=== PATIENT | male | born 1975 | race Caucasian/White ===

== ENCOUNTER → 2019-04-11 16:17 | Outpatient (CLI) | payer OTHER, SELFPAY ==
[2019-04-11 17:31] LABS: Hemoglobin 11.6 g/dL (13.0-16.5); Mean Corp Hgb Conc 29.7 g/dL (32-36); Mean Corpuscular Hgb 27.8 pg (27.0-32.0); Mean Corpuscular Volume 93.3 fL (80-94); Mean Platelet Vol. 10.2 fl (6.2-12.0); Platelet Count 238 K/mm3 (150-450); RBC Distribution Width CV 18.1 % (11.6-14.6); RBC Distribution Width SD 60.8 fl (35.1-43.9); Red Blood Count 4.18 M/mm3 (4.6-6.2)
[2019-04-11 17:46] LABS: ALB/GLOB Ratio 0.8 RATIO (0.9-2.4); AST(SGOT) 14 U/L (15-37); Alanine Aminotransfer ALT/SGPT 21 U/L (16-61); Albumin, Serum 3.5 g/dL (3.2-5.0); Alkaline Phosphatase 101 U/L (45-117); Anion Gap 2 (5-15); BUN 15 mg/dL (7-18); CRP 5.29 mg/L (0.0-3.0); Calcium,Total 8.9 mg/dL (8.5-10.1); Chloride 104 mmol/L (98-107); Creatinine, Serum 0.94 mg/dL (0.70-1.30); EST Glomerular Filtration Rate 94 mL/min (>60); Est Glom Filt Rate - Afr Amer 114 mL/min (>60); Globulin 4.5 g/dL (2.2-4.2); Glucose 82 mg/dL (74-106); Potassium 4.1 mmol/L (3.5-5.1); Sodium Level 139 mmol/L (136-145)
[2019-04-11 17:55] LABS: Erythrocyte Sedimentation Rate 10 mm/hr (0-15)
== END ==
PROVIDERS: Referring Provider Internal Medicine Gastroenterology; Visit Provider Internal Medicine Gastroenterology
DX: K52.9 Noninfective gastroenteritis and colitis, unspecified (principal); K50.90 Crohn's disease, unspecified, without complications
CPT/HCPCS: 36415; 80053; 85027; 85652; 86140

== ENCOUNTER → 2020-12-01 16:03 | Outpatient (CLI) | payer MEDICAID, SELFPAY ==
[2020-12-01 17:48] LABS: Erythrocyte Sedimentation Rate 21 mm/hr (0-20)
[2020-12-09 15:30] LABS: Calprotectin, Stool 567 ug/g (0-120)
== END ==
PROVIDERS: PCP Family Medicine; Referring Provider Internal Medicine Gastroenterology; Visit Provider Internal Medicine Gastroenterology
DX: K50.10 Crohn's disease of large intestine without complications (principal)
CPT/HCPCS: 36415; 83993; 85652; 86140

== ENCOUNTER 2020-12-23 10:43 | Day surgery (SDC) | payer OTHER, MEDICAID, SELFPAY ==
[2020-12-23] VITALS (7 sets, daily range): BP systolic 97–122; BP diastolic 60–83; PULSE 16–65; RESP 14–16; TEMP 36.1–37.1; O2SAT 98–100; BMI 24.7
[2020-12-23] MEDS: Lactated Ringers 1,000 ML 100 ML IV (11:30)
[2020-12-23 11:50] LABS: Bedside Glucose 90 mg/dL (70-110)
--- NOTE | 2020-12-23 12:00 | COLBX_PTH ---
PATIENT: THOMAS SAINZ LOC: EN U#:[id number] AGE/SX: 45/M ROOM: RE12/23/[address]: Dr. Kyaw Xiao DO : 1975 BED: DIS: 12/23/2020 SPEC #: [id number] RECD: 12/23/20 17:04 STATUS: SALIMA MNIESH #: [id number] CELENA: 12/23/20 12:[address]: Kyaw Xiao DEPT: SURGICAL PATHOLOGY RECD BY: Lashon Liang ENTERED: 12/24/20 09:04 SP TYPE: COLON BX OTHR DR: Dr. Cesar Fletcher MD Tissues: A - Ileum, NOS B - Cecum, NOS C - Ascending colon D - Transverse colon E - Descending colon F - Sigmoid colon biopsy G - Rectum, NOS H - Rectum, NOS Procedures: Surgery Specimen Level IV HEADER OPERATION: Colonoscopy (MAC) PRE-OP DIAGNOSIS: Inflammatory bowel disease TISSUE SUBMITTED: A ? Terminal ileum biopsy, B ? Cecum biopsy, C ? Ascending colon biopsy, D ? Transverse colon biopsy, E ? Descending colon biopsy, F ? Sigmoid colon biopsy, G ? Rectal biopsy, H ? Rectal polyp biopsy MICROSCOPIC DIAGNOSIS A. Terminal ileum, biopsy: No pathologic change. B. Cecum, biopsy: No pathologic change. C. Ascending colon, biopsy: No pathologic change. D. Transverse colon, biopsy: Mild architectural change. No evidence of active colitis. E. Descending colon, biopsy: Mild architectural change. No evidence of active colitis. F. Sigmoid colon, biopsy: Mild architectural change. No evidence of active colitis. G. Rectum, biopsy: Mild architectural change. No evidence of active colitis. H. Rectal polyp, biopsy: Ulceration with acute and chronic inflammation and granulation. AM:catalino 12/25/2020 MICROSCOPIC DESCRIPTION Slides are reviewed. GROSS DESCRIPTION A - Received in fixative is one container labeled with the patient's name and designated terminal ileum biopsy. The specimen consists of multiple irregular fragments of light carnes soft tissue that in aggregate measure 0.5 x 0.5 x 0.1 cm. The specimen is totally submitted in one cassette. B - Received in fixative is one container labeled with the patient's name and designated cecum biopsy. The specimen consists of multiple irregular fragments of light carnes soft tissue that in aggregate measure 0.5 x 0.4 x 0.1 cm. The specimen is totally submitted in one cassette. C - Received in fixative is one container labeled with the patient's name and designated ascending colon biopsy. The specimen consists of multiple irregular fragments of light carnes soft tissue that in aggregate measure 0.5 x 0.4 x 0.1 cm. The specimen is totally submitted in one cassette. D - Received in fixative is one container labeled with the patient's name and designated transverse colon biopsy. The specimen consists of two irregular fragments of light carnes soft tissue that in aggregate measure 0.4 x 0.2 x 0.1 cm. The specimen is totally submitted in one cassette. E - Received in fixative is one container labeled with the patient's name and designated descending colon biopsy. The specimen consists of multiple irregular fragments of light carnes soft tissue that in aggregate measure 0.6 x 0.2 x 0.1 cm. The specimen is totally submitted in one cassette. F - Received in fixative is one container labeled with the patient's name and designated sigmoid colon biopsy. The specimen consists of multiple irregular fragments of light carnes soft tissue that in aggregate measure 0.5 x 0.5 x 0.1 cm. The specimen is totally submitted in one cassette. G - Received in fixative is one container labeled with the patient's name and designated rectum biopsy. The specimen consists of multiple irregular fragments of light carnes soft tissue that in aggregate measure 0.8 x 0.3 x 0.1 cm. The specimen is totally submitted in one cassette. H - Received in fixative is one container labeled with the patient's name and designated rectal polyp biopsy. The specimen consists of two irregular fragments of light carnes soft tissue that in aggregate measure 0.4 x 0.2 x 0.1 cm. The specimen is totally submitted in one cassette. / SJ:rg 12/24/20 TC:2 [facility]: [id number] x8
--- NOTE | 2020-12-23 13:11 | HP.PCM_ITS ---
History and Physical Date of Admission: 12/23/20 HPI HPI Details: THOMAS SAINZ, is a 45 M who presents to the office today for past medical history of inflammatory bowel disease. Patient says that initially he was diagnosed with ulcerative colitis and was placed on balsalazide therapy. That was switched to Humira after the balsalazide did not work. He went to see a different sorter operator they gave him his initial diagnosis of ulcerative colitis and he told him that he had Crohn's disease. That sorter operator retired and he was not able to get his medicine for his inflammatory bowel disease so he went back to the balsalazide. The balsalazide did not work at all. He was able to get in contact with his sorter operator and he was able to refill his Humira. Currently he does not think that his Advair is working. As he is still having a lot of mucus, blood and tenesmus. He is also having urgency and a lot of frequent bowel movements. He is having to wake up in the middle night and he is having to miss work because he cannot stop for going to the bathroom. He denies any recent antibiotics. He denies recent travel. His last Humira injection was on11/26/20. As a history of alcohol abuse with recent completion of rehabilitation - history of DUI with court ordered rehab. Last drink was in June 2020. His last colonoscopy was in 2016. ROS Const Constitutional: No anorexia, fatigue, fever(s), weight change or sleep problems Eyes Eyes: No change in vision ENT ENT: No abnormal hearing, difficulty swallowing, mouth lesions, tongue swelling or throat swelling Resp Respiratory: No cough or shortness of breath Cardio Cardiology: No chest pain at rest, chest pain with exertion, shortness of breath or dyspnea on exertion Gastro GI: Positive for abdominal pain, bloating, diarrhea and Blood in stool; No difficulty swallowing Genitourinary Male: No difficulty urinating or burning urination Musc Musculoskeletal: No joint pain, joint swelling, muscle weakness or decreased muscle mass Skin Skin: No hair loss in leg, yellowing of the eye, itchy eyes, rash, skin ulcer or skin swelling Neuro Neurology: No abnormal hearing, abnormal movements, confusion, unsteady gait/balance or memory loss Psych Psychiatric: No anxiety, No confusion and No memory loss Endo Endocrine: No fatigue or weight change Aller/Imm Allergy/Immunologic: No itchy eyes, throat swelling or tongue swelling Thoams/Lymp Hematologic/Lymphatic: No easy bleeding, easy bruising or enlarged lymph nodes Exam Const General: cooperative and comfortable Nutritional Appearance: average body habitus and well nourished [facility] Head: normal to inspection Ears: hearing grossly normal bilaterally Nose: external nose normal Face and sinus: normal facial exam Mouth: oral mucosae normal Throat: posterior oropharynx normal Eyes General: appearance normal, both eyes and all related structures Neck Neck: normal visual inspection Chest Chest palpation & inspection: normal inspection of the chest and normal palpation of entire chest wall Resp Effort & Inspection: normal respiratory effort Auscultation: Bilateral: Clear to Auscultation Cardio Palpation: normal PMI Rate: regular rate Rhythm: regular rhythm GI Inspection: normal to inspection Auscultation: normal bowel sounds Percussion: normal to percussion Palpation: no hepatosplenomegaly Skin General: no rashes or lesions noted Neuro General: patient alert Extrem General: normal to inspection Psych Affect: normal affect Assessment and Plan Assessment and Plan (1) Inflammatory bowel disease: Status: Acute Plan - Dr. Card Friend, DO: Patient will undergo colonoscopy. He will also have stool studies check for C. difficile, enteric pathogens, Giardia. We also check ESR, CRP and stool lactoferrin. We will check his antibodies for adalimumab. We discussed him going on immunomodulator such as Imuran or azathioprine in addition to Humira if he does not have any antibodies. He was taking Humira weekly and he still was not having any improvement in symptoms. We will also need to check therapeutic levels. This initial visit took approximately 30 minutes. Plan Details Other Medications: New: prednisone 40 mg (2 x 20 mg) PO DAILY 180 tabs 0RF
--- NOTE | 2020-12-23 13:49 | OP.COLON_ITS ---
Patient Name: Owen Hassan Procedure Date: 12/23/2020 1:08 PM Date of : 1975 Age: 45 Procedure: Colonoscopy Indications: Crohn's disease of the small bowel and colon Providers: Kyaw Xiao DO Medicines: See the Anesthesia note for documentation of the administered medications Patient Profile: This is a 45 year old male. Refer to note in patient chart for documentation of history and physical. Last Colonoscopy: 3 years ago. Complications: No immediate complications. Procedure: Pre-Anesthesia Assessment: - Prior to the procedure, a History and Physical was performed, and patient medications and allergies were reviewed. The patient is competent. The risks and benefits of the procedure and the sedation options and risks were discussed with the patient. All questions were answered and informed consent was obtained. Patient identification and proposed procedure were verified by the physician. Mental Status Examination: alert and oriented. Airway Examination: normal oropharyngeal airway and neck mobility. Respiratory Examination: clear to auscultation. CV Examination: normal. Prophylactic Antibiotics: The patient does not require prophylactic antibiotics. Prior Anticoagulants: The patient has taken no previous anticoagulant or antiplatelet agents. ASA Grade Assessment: II - A patient with mild systemic disease. After reviewing the risks and benefits, the patient was deemed in satisfactory condition to undergo the procedure. The anesthesia plan was to use moderate sedation / analgesia (conscious sedation). Immediately prior to administration of medications, the patient was re-assessed for adequacy to receive sedatives. The heart rate, respiratory rate, oxygen saturations, blood pressure, adequacy of pulmonary ventilation, and response to care were monitored throughout the procedure. The physical status of the patient was re-assessed after the procedure. After I obtained informed consent, the scope was passed under direct vision. Throughout the procedure, the patient's blood pressure, pulse, and oxygen saturations were monitored continuously. The Colonoscope was introduced through the anus and advanced to 10 cm into the ileum. The colonoscopy was performed without difficulty. The patient tolerated the procedure well. The quality of the bowel preparation was good. Moderate Sedation: Moderate (conscious) sedation was administered by the endoscopy nurse and supervised by the endoscopist. The patient's oxygen saturation, heart rate, blood pressure and response to care were monitored. Total physician intraservice time was 15 minutes. Scope In: 1:20:06 PM Scope Withdrawal Time 0 hours 13 minutes 44 seconds Scope Out: 1:39:55 PM Total Procedure Duration Time 0 hours 19 minutes 49 seconds Findings: The perianal and digital rectal examinations were normal. The Simple Endoscopic Score for Crohn's Disease was determined based on the endoscopic appearance of the mucosa in the following segments: - Ileum: Findings include ulcers greater than 2 cm in size, greater than 30% ulcerated surfaces, greater than 75% of surfaces affected and multiple narrowings that can be passed. Segment score: 11. - Right Colon: Findings include ulcers greater than 2 cm in size, greater than 30% ulcerated surfaces, 50-75% of surfaces affected and no narrowings. Segment score: 8. - Transverse Colon: Findings include large ulcers 0.5-2 cm in size, 10-30% ulcerated surfaces, 50-75% of surfaces affected and multiple narrowings that can be passed. Segment score: 8. - Left Colon: Findings include ulcers greater than 2 cm in size, greater than 30% ulcerated surfaces, greater than 75% of surfaces affected and a single narrowing that can be passed. Segment score: 10. - Rectum: Findings include ulcers greater than 2 cm in size, 10-30% ulcerated surfaces, greater than 75% of surfaces affected and no narrowings. Segment score: 8. - Total SES-CD aggregate score: 45. Biopsies were taken with a cold forceps for histology. Verification of patient identification for the specimen was done. Estimated blood loss was minimal. Segmental inflammation, graded as Rutgeerts Score i1 (five or fewer aphthous lesions) was found in the distal ileum. Biopsies were taken with a cold forceps for histology. Verification of patient identification for the specimen was done. Estimated blood loss was minimal. Impression: - Simple Endoscopic Score for Crohn's Disease: 45, mucosal inflammatory changes secondary to Crohn's disease, with ileitis and colitis. Biopsied. - Inflammatory bowel disease. Biopsied. Recommendation: - Discharge patient to home. - Resume previous diet. - Continue present medications. - Await pathology results. - Return to my office in 2 weeks. - Repeat colonoscopy in 1 year for surveillance based on pathology results. Procedure Code(s): --- Professional --- 21590, Colonoscopy, flexible; with biopsy, single or multiple G0500, Moderate sedation services provided by the same physician or other qualified health care process manager performing a gastrointestinal endoscopic service that sedation supports, requiring the presence of an independent trained observer to assist in the monitoring of the patient's level of consciousness and physiological status; initial 15 minutes of intra-service time; patient age 5 years or older (additional time may be reported with 09874, as appropriate) Diagnosis Code(s): --- Professional --- K50.80, Crohn's disease of both small and large intestine without complications K52.3, Indeterminate colitis CPT copyright 2017 [employer]. All rights reserved. The codes documented in this report are preliminary and upon software qa manager review may be revised to meet current compliance requirements. Kyaw Xiao DO 12/23/2020 1:48:52 PM This report has been signed electronically. Number of Addenda: 1 Note Initiated On: 12/23/2020 1:08 PM Addendum Number: 1 Addendum Date: 10/16/2021 6:19:28 AM MAC was used instead of moderate sedation for this patient. Kyaw Xiao DO 10/16/2021 6:19:33 AM This report has been signed electronically.
--- NOTE | 2020-12-23 13:49 | OP.CCLET_ITS ---
10/16/2021 Cesar Fletcher Re : Colonoscopy procedure for Owen Fletcher This procedure was performed on Wednesday, December 23, 2020. My impressions and recommendations are as follows: Impressions : - Simple Endoscopic Score for Crohn's Disease: 45, mucosal inflammatory changes secondary to Crohn's disease, with ileitis and colitis. Biopsied. - Inflammatory bowel disease. Biopsied. Recommendations : - Discharge patient to home. - Resume previous diet. - Continue present medications. - Await pathology results. - Return to my office in 2 weeks. - Repeat colonoscopy in 1 year for surveillance based on pathology results. My findings are described in the full procedure note, which is enclosed. If I can be of further assistance, please feel free to contact me at . Sincerely, Kyaw Friend, 12/23/2020 1:48:52 PM This report has been signed electronically.
== END 2020-12-23 14:45 | disposition home or self-care (01) ==
LOC: EN 10:48 → AC 10:53
PROVIDERS: PCP Family Medicine; Referring Provider Internal Medicine Gastroenterology; Visit Provider Internal Medicine Gastroenterology
PROC: 0DJD8ZZ Inspection of Lower Intestinal Tract, Via Natural or Artificial Opening Endoscopic (ICD-10-PCS; CPT 45378; principal; 2020-12-23 11:55)
DX: K62.6 Ulcer of anus and rectum (principal); K50.80 Crohn's disease of both small and large intestine without complications; E11.9 Type 2 diabetes mellitus without complications; E03.9 Hypothyroidism, unspecified; F17.200 Nicotine dependence, unspecified, uncomplicated; Z79.84 Long term (current) use of oral hypoglycemic drugs; Z79.899 Other long term (current) drug therapy
CPT/HCPCS: 45380; 82962; 87426; 88305; J7120; J2405

== ENCOUNTER → 2021-01-09 14:53 | Outpatient (CLI) | payer OTHER, MEDICAID, SELFPAY ==
[2021-01-15 00:06] LABS: Hepatitis A IgM Antibody Negative (Negative); Hepatitis B Core Ab Total Negative (Negative)
[2021-01-15 13:40] LABS: B. pertussis IgG 1.38 index (0.00-0.94); Hepatitis B Core AB IgM Negative (Negative); Mumps Antibody, IgM < 0.80 AU (0.00-0.79); V-Zoster IgG (Immunity) > 4000 index (Immune >165)
== END ==
PROVIDERS: PCP Family Medicine; Referring Provider Internal Medicine Gastroenterology; Visit Provider Internal Medicine Gastroenterology
DX: K50.10 Crohn's disease of large intestine without complications (principal)
CPT/HCPCS: 36415; 86704; 86705; 86709; 86735; 86762; 86787

== ENCOUNTER → 2021-02-02 15:54 | Outpatient (CLI) | payer OTHER, MEDICAID, SELFPAY ==
[2021-02-02 16:48] LABS: Erythrocyte Sedimentation Rate 13 mm/hr (0-20)
[2021-02-02 17:04] LABS: ALB/GLOB Ratio 0.8 RATIO (0.9-2.4); AST(SGOT) 32 U/L (15-37); Alanine Aminotransfer ALT/SGPT 32 U/L (16-61); Albumin, Serum 3.3 g/dL (3.2-5.0); Alkaline Phosphatase 75 U/L (45-117); Anion Gap 9 (5-15); BUN 12 mg/dL (7-18); Calcium,Total 9.2 mg/dL (8.5-10.1); Chloride 90 mmol/L (98-107); Creatinine, Serum 1.09 mg/dL (0.70-1.30); EST Glomerular Filtration Rate 78 mL/min (>60); Est Glom Filt Rate - Afr Amer 95 mL/min (>60); Globulin 4.2 g/dL (2.2-4.2); Glucose 99 mg/dL (74-106); Potassium 3.9 mmol/L (3.5-5.1); Protein, Total 7.5 g/dL (6.4-8.2); Sodium Level 130 mmol/L (136-145)
== END ==
PROVIDERS: PCP Family Medicine; Referring Provider Internal Medicine Gastroenterology; Visit Provider Internal Medicine Gastroenterology
DX: K50.10 Crohn's disease of large intestine without complications (principal)
CPT/HCPCS: 36415; 80053; 85652; 86140

== ENCOUNTER 2021-05-04 12:48 | Outpatient (CLI) | payer OTHER, MEDICAID, SELFPAY ==
[2021-05-04 13:39] LABS: Absolute Lymphocyte Count 0.14 X10^3/uL (0.83-4.51); Absolute Neutrophil Count 0.9 X10^3/uL (2.0-7.7); Hematocrit 21.3 % (40-54); Hemoglobin 7.9 g/dL (13.0-16.5); Lymphocyte # 0.14 X10^3/ul (0.83-4.51); Lymphocyte % 12.7 % (19-41); Mean Corp Hgb Conc 37.1 g/dL (32-36); Mean Corpuscular Hgb 33.2 pg (27.0-32.0); Mean Corpuscular Volume 89.5 fL (80-94); Monocyte# 0.05 X10^3/uL; Monocyte% 4.5 % (0-10); NRBC Flagged by Analyzer 0 % (0-5); Neutrophil # 0.89 X10^3/uL (2.7-7.7); POSITIVE COUNT YES; POSITIVE DIFFERENTIAL YES; POSITIVE MORPHOLOGY YES; Platelet Count 17 K/mm3 (150-450); RBC Distribution Width CV 15.8 % (11.6-14.6); RBC Distribution Width SD 51.6 fl (35.1-43.9); Red Blood Count 2.38 M/mm3 (4.6-6.2); White Blood Count 1.1 K/mm3 (4.4-11.0)
[2021-05-04 13:42] LABS: Erythrocyte Sedimentation Rate 8 mm/hr (0-20)
[2021-05-04 14:19] LABS: Differential Indicated SCAN CRITERIA MET; Hypochromasia 1+; Platelet Estimate MKD DEC (ADEQ)
[2021-05-04 14:20] LABS: Tear Drop Cell RARE
[2021-05-04 14:21] LABS: ALB/GLOB Ratio 0.5 RATIO (0.9-2.4); AST(SGOT) 71 U/L (15-37); Alanine Aminotransfer ALT/SGPT 39 U/L (16-61); Alkaline Phosphatase 62 U/L (45-117); Anion Gap 9 (5-15); BUN 23 mg/dL (7-18); BUN/Creat Ratio 20.4 RATIO (10-20); Calcium,Total 7.4 mg/dL (8.5-10.1); Chloride 91 mmol/L (98-107); Creatinine, Serum 1.13 mg/dL (0.70-1.30); EST Glomerular Filtration Rate 75 mL/min (>60); Est Glom Filt Rate - Afr Amer 91 mL/min (>60); Globulin 3.7 g/dL (2.2-4.2); Glucose 172 mg/dL (74-106); Potassium 2.7 mmol/L (3.5-5.1); Protein, Total 5.7 g/dL (6.4-8.2); Sodium Level 121 mmol/L (136-145)
[2021-05-05 13:05] LABS: Pathologist Review Reviewed
== END 2021-05-04 23:59 | disposition home or self-care (01) ==
LOC: LAB 12:54
PROVIDERS: PCP Family Medicine; Visit Provider Internal Medicine Gastroenterology
DX: K50.10 Crohn's disease of large intestine without complications (principal)
CPT/HCPCS: 36415; 80053; 85025; 85652; 86140

== ENCOUNTER 2021-05-04 16:00 | Emergency (ER) | payer OTHER, MEDICAID, SELFPAY ==
[2021-05-04] VITALS (12 sets, daily range): BP systolic 72–108; BP diastolic 41–65; PULSE 81–104; RESP 15–25; TEMP 36.5–38.2; O2SAT 75–98; BMI 22.6
--- NOTE | 2021-05-04 17:14 | EKG12_ITS ---
Test Reason : ABNORMAL LABS Blood Pressure : / mmHG Vent. Rate : 092 BPM Atrial Rate : 092 BPM P-R Int : 196 ms QRS Dur : 100 ms QT Int : 370 ms P-R-T Axes : 072 042 052 degrees QTc Int : 457 ms Sinus rhythm with occasional Premature ventricular complexes Low voltage QRS Borderline ECG Confirmed by BARBARA KRUSE, LEANNE ([id number]), legal editor LUIS EDUARDO MON ([id number]) on 05/07/2021 9:28:34 AM Referred By: YASH Confirmed By:LEANNE JIMENEZ MD
--- NOTE | 2021-05-04 17:30 | RAD_ITS ---
EXAM: XR CHEST, 1 VIEW CLINICAL INDICATION: weakness TECHNIQUE: Frontal view of the chest. This report was created using [employer] report generation technology. COMPARISON: None. FINDINGS: LUNGS AND PLEURAL SPACES: Unremarkable. No consolidation or edema. No pneumothorax. No effusion. HEART: Unremarkable. Cardiac silhouette not enlarged. MEDIASTINUM: Central airways and mediastinal contour are unremarkable. BONES/JOINTS: Unremarkable. SOFT TISSUES: Unremarkable. RAD/Chest 1 View (Portable) IMPRESSION: No radiographic evidence of acute cardiopulmonary disease. Electronically Signed: Ajith Parra MD at 17:47 EDT ,
--- NOTE | 2021-05-04 18:05 | EX.PCM.CON.G ---
HPI Consult Data Date of Consult: 05/04/21 HPI Narrative HPI Narrative: THOMAS SAINZ, is a 46 M who presents after calling the office today with chief complaint of weakness and fatigue. He has a long history of inflammatory bowel disease, specifically Crohn's disease. He had been on Humira and prednisone in the past. We got to know him in November 2020. His work-up included an IBD SGI which was inconclusive for Crohn's disease versus ulcerative colitis. He did not know if he had ulcerative colitis or Crohn's disease. His stool studies did not show any signs of infectious colitis. His initial ESR was 21 and CRP was 31.9. He had a colonoscopy performed on 12/23/2020. Colonoscopy ? Mucosal inflammatory changes secondary to Crohn?s disease with ileitis and colitis. IBD. Biopsy ? rectal polyp, ulceration with acute and chronic inflammation and granulation. He was started on azathioprine and prednisone two weeks prior to the colonoscopy. He felt that urgency may be less following prednisone course. He had continued to be taking prednisone 40mg QD and Lomotil was started to control his diarrhea. As he was still having seepage of mucous on occasion, uses witch mery wipes to help with skin irritation. When he feels the need to go there is still some diarrhea and a lot of gas which is an improvement. Humira taken previously which helped and placed him in remission but feels it stopped helping. Last taken several months ago. On his last visit in January 2021 we had decided to continue azathioprine 150mg as it is helping as we were getting insurance approval for Remicade. His LFT's, amylase, lipase and WBC within expected range. He called the office today because he been having worsening fatigue and weakness along with diarrhea. We had ordered labs and showed pancytopenia with a white count of 1.1, platelet count of 17 and hemoglobin is 7.9. He was also hypokalemic and hyponatremic. He was started on IV fluids and prophylactic antibiotics were ordered. Also stool cultures and blood cultures were ordered along with stool for CMV. [facility] Medical History (Updated 05/04/21 @ 18:[address] Card Friend, ) Alcohol use Chewing tobacco nicotine dependence Crohn's colitis Decreased libido Depression Diabetes Diabetes mellitus History of Crohn's disease History of pain when walking History of steroid therapy Hypothyroid Leukocytosis Seizures Ulcerative colitis Home Medications calcium carbonate 600 mg calcium (1,500 mg) tablet 600 mg PO DAILY 12/01/20 [History Last Taken Unknown] citalopram 40 mg tablet 20 mg PO DAILY 12/01/20 [History Last Taken Unknown] levothyroxine 75 mcg tablet 75 mcg PO DAILY 12/01/20 [History Last Taken Unknown] mecobalamin (vitamin B12) 1,000 mcg chewable tablet 1,000 mcg PO BID 12/01/20 [History Last Taken Unknown] metformin 500 mg tablet 500 mg PO DAILY 12/01/20 [History Last Taken Unknown] multivitamin 1 tab PO DAILY 12/01/20 [History Last Taken Unknown] omega-3 fatty acids 1,000 mg capsule 1,000 mg PO DAILY 12/01/20 [History Last Taken Unknown] ginkgo biloba 120 mg PO DAILY 12/19/20 [History Last Taken Unknown] azathioprine 50 mg tablet 100 mg PO DAILY 30 Days #60 tab 12/23/20 [Rx Last Taken Unknown] azathioprine 50 mg tablet 150 mg PO DAILY #90 tab 01/05/21 [Rx Last Taken Unknown] diphenoxylate-atropine 2.5 mg-0.025 mg tablet 1 tab PO DAILY #30 tab 01/05/21 [Rx Last Taken Unknown] dicyclomine 10 mg capsule 10 mg PO TID #21 cap 02/02/21 [Rx Last Taken Unknown] prednisone 20 mg tablet 40 mg PO QHS #60 tab 03/25/21 [Rx Last Taken Unknown] Allergy/AdvReac Type Severity Reaction Status Date / Time No Known Allergies Allergy Verified 05/04/21 16:03 Surgical History History of mandibular surgery Hx of colonoscopy Hx of myringotomy Social History Smoking Status: Current every day smoker tobacco type: smokeless tobacco ROS Review of Systems ROS Unobtainable: other Constitutional Constitutional: Denies fatigue, fever(s), poor appetite, weight gain or weight loss ENT HEENT: Denies mouth lesions Cardiovascular Cardiovascular: Denies abdominal bloating, abdominal edema or abdominal pain Respiratory/Chest Respiratory/Chest: Denies change in mental status, change in phlegm color, chest congestion or chest tightness Gastrointestinal Gastrointestinal: Denies belching, bloating, change in bowel habits, change in stool character, chewing difficulty, coffee ground emesis, constipation, cramping, diarrhea, dyspepsia, dysphagia, early satiety, excessive flatus, fecal incontinence, heartburn, hematemesis, hematochezia, hemorrhoids, loose stools, melena, nausea, odynophagia, rectal bleeding, tenesmus, vomiting or weight changes Genitourinary Genitourinary: Denies abdominal discomfort, burning urination or itching Musculoskeletal Musculoskeletal: Reports as per HPI; Denies muscle weakness or myalgias Integumentary Integumentary: Denies jaundice Neurologic Neurologic: Denies lack of coordination or weakness Psychiatric Psychiatric: Denies confusion, depression, memory loss, mood swings, paranoia or suicidal ideation Endocrine Endocrinology: Denies systems reviewed and no addt'l complaints, except as documented Hematologic/Lymphatic Hematologic/Lymphatic: Denies anemia, easy bleeding, easy bruising or lymphadenopathy Allergic/Immunologic Allergic/Immunologic: Denies systems reviewed and no addt'l complaints, except as documented Physical Exam Const alert General Appearance: cooperative Orientation / Consciousness: oriented to person HEENT hearing grossly normal bilaterally Head and Scalp: normal to inspection Face and Sinus: face symmetric Nose: external nose normal Mouth: oral and palatal mucosa normal Eyes conjunctivae normal General Eye: normal appearance of both eyes Neck full ROM General: normal visual inspection Lymph Lymphatic: no lymphadenopathy noted Chest inspection of chest normal and palpation of chest normal Chest: symmetrical chest wall rise Resp normal respiratory effort Effort and Inspection: able to speak in complete sentences Cardio regular rate GI non-distended Percussion: normal to percussion Rectal Exam: deferred Neuro Speech: speech normal Gait (Neuro): normal gait Radiology Impression Chest X-Ray 05/04/21 17:30 IMPRESSION: No radiographic evidence of acute cardiopulmonary disease. Electronically Signed: Ajith Parra MD at 17:47 EDT , Assessment & Plan Assessment/Plan (1) Crohn's colitis: PLAN: Patient seems to be having a lot of diarrhea possibly consistent with a flare of Crohn's colitis. This could be from infectious colitis due to his severe pancytopenia. Recommend to check a cortisol level. He may need prophylactic steroids, for now would just recommend to give him Questran or cholestyramine for his diarrhea. He may also have Lomotil depending on his stool studies. His inflammatory markers evaluate elevated and I cannot tell if that is from Crohn's disease or infectious colitis at this time. Await stool cultures and blood cultures (2) Pancytopenia: PLAN: Thought to be secondary to azathioprine and or Remicade. He did not have this reaction with Humira or prednisone so I am suspecting it is more likely azathioprine than Remicade. Typically we will check therapeutic levels, however we cannot do that as an inpatient. I talked to hematology and if his absolute neutrophil count continues to drop then he can get Neupogen. I would avoid the antibiotics that can induce worsening neutropenia or pancytopenia. Charges/Coding Visit Charges Inpatient E&M: 67392 Init Hosp L3
[2021-05-04] MEDS: 0.9% Normal Saline 1,000 ML 999 ML IV ×3 (18:36→20:32)
[2021-05-04 18:49] LABS: International Normalized Ratio 1.3; Prothrombin Time (Protime)PT. 15.7 SECONDS (11.7-14.9)
--- NOTE | 2021-05-04 18:50 | CT_ITS ---
STUDY: CT Abdomen And Pelvis W/ Contrast Injection 05/04/2021 7:29 PM REASON FOR EXAM: Male, 46 years old. ABDOMINAL PAIN crohns TECHNIQUE: Transaxial images were obtained without oral contrast, and with 100 ML OF ISOVUE 300 intravenous contrast. Individualized dose optimization techniques were used for this CT. COMPARISON: None. FINDINGS: Multiple subcentimeter bilateral lung nodules. There are bilateral pleural effusions. Normal liver. Normal gallbladder and extrahepatic biliary system. There is mild splenomegaly. Normal pancreas. Splenic varices Normal bilateral adrenal glands. No acute findings of the right kidney. No acute findings of the left kidney. Normal visualized stomach. Normal small intestine. Mild wall inflammation of the rectosigmoid colon. This appearance suggests colitis. The appendix is visualized and appears normal. There are calcifications of the abdominal aorta. This is consistent for atherosclerotic disease. There is no abdominal aortic aneurysm. Normal inferior vena cava. Subcentimeter mesenteric lymph nodes. Periaortic lymph nodes Normal urinary bladder. There is an umbilical hernia containing fat. There are diffuse degenerative changes of the visualized lumbar spine. IMPRESSION: (NOT LISTED IN ORDER OF SIGNIFICANCE) Mild wall inflammation of the rectosigmoid colon. This appearance suggests colitis. Multiple subcentimeter bilateral lung nodules. Metastatic disease is not excluded. Recommend CT chest to evaluate for other masses. There are bilateral pleural effusions. Splenic varices. There is mild splenomegaly. Other findings as above. Electronically Signed: Ajith Parra MD at 19:33 EDT , CT/Abdomen/Pelvis W IV Cont ONLY
[2021-05-04 18:51] LABS: Partial Thromboplast Time 50.1 Seconds (24.1-36.2)
[2021-05-04 18:57] LABS: Magnesium 1.7 mg/dL (1.6-2.6); Troponin-I HS 6 pg/mL (3.0-78.0)
[2021-05-04 19:00] LABS: Lactic Acid 1.4 mmol/L (0.4-1.9)
[2021-05-04] MEDS: Piperacil/Tazobactam 3.375 GM Q8 PREMIX IV (19:13)
[2021-05-04 19:50] LABS: CPK Total, Creatine Kinase 75 U/L (39-308); Ferritin 39901 ng/mL (26-388); Iron 29 ug/dL (65-175); Iron Binding Capacity,Total 136 ug/dL (250-450); PERCENT IRON SATURATION 21.3 % (15.0-55.0)
[2021-05-04] MEDS: Magnesium Sulfate 4gm/100mL 4 GM/100 ML IV.SOLN. IV (20:53)
[2021-05-04] MEDS: Albumin Human 25% (50 mL) 12.5 GM/50 ML IV.SOLN IV (21:26)
[2021-05-04] MEDS: Acetaminophen 500 MG Tablet 1000 MG PO (21:38)
--- NOTE | 2021-05-04 21:53 | ED.RN ---
CALLED [facility] AND ASKED THEM FOR A ETA 3 HOURS, I ASKED THEM TO OUTSOURCE THIS FOR US.
--- NOTE | 2021-05-04 22:08 | ED.RN ---
[facility] ETA IS 3 HOURS FOR THIS PATIENT THEY TRIED TO OUTSOURCE NOBODY WOULD TAKE IT
--- NOTE | 2021-05-04 22:21 | EDS_ITS ---
HPI History of Present Illness Chief Complaint: Abn Labs Narrative Narrative: 46-year-old male with history of Crohn's disease who sees Dr. Xiao. Recently had endoscopy performed and it was noted that his Humira was no longer working for him. Patient's been doing Remicade treatments outpatient and he notes that after the last one on the fourth he has been feeling unwell and weak. He describes weakness when walking. He states he can only hold his arm out for about a minute or so. He has been looking for stools to sit on at work because he is too weak to stay standing. Patient states that he called Dr. Xiao's office today and lab work was ordered and he went and had this done. He states that all of his labs were abnormal and he was referred to the ER. Patient has not had any chest pain or shortness of breath although he does have some lightheadedness. He denies any abdominal pain. He states he has a lot of profuse diarrhea which is uncontrollable and he states this more or less just comes out of his rectum without any warning and he has been having to change his pants all day. He denies bloody stools. He denies vomiting, hematemesis, coffee-ground emesis. Patient does not express that he has any abdominal pain or urinary complaints. [facility] Medical History Alcohol use Chewing tobacco nicotine dependence Crohn's colitis Decreased libido Depression Diabetes Diabetes mellitus History of Crohn's disease History of pain when walking History of steroid therapy Hypothyroid Leukocytosis Seizures Ulcerative colitis Home Medications calcium carbonate 600 mg calcium (1,500 mg) tablet 600 mg PO DAILY 12/01/20 [History Last Taken Unknown] citalopram 40 mg tablet 20 mg PO DAILY 12/01/20 [History Last Taken Unknown] levothyroxine 75 mcg tablet 75 mcg PO DAILY 12/01/20 [History Last Taken Unknown] mecobalamin (vitamin B12) 1,000 mcg chewable tablet 1,000 mcg PO BID 12/01/20 [History Last Taken Unknown] metformin 500 mg tablet 500 mg PO DAILY 12/01/20 [History Last Taken Unknown] multivitamin 1 tab PO DAILY 12/01/20 [History Last Taken Unknown] omega-3 fatty acids 1,000 mg capsule 1,000 mg PO DAILY 12/01/20 [History Last Taken Unknown] ginkgo biloba 120 mg PO DAILY 12/19/20 [History Last Taken Unknown] azathioprine 50 mg tablet 100 mg PO DAILY 30 Days #60 tab 12/23/20 [Rx Last Taken Unknown] azathioprine 50 mg tablet 150 mg PO DAILY #90 tab 01/05/21 [Rx Last Taken Unknown] diphenoxylate-atropine 2.5 mg-0.025 mg tablet 1 tab PO DAILY #30 tab 01/05/21 [Rx Last Taken Unknown] dicyclomine 10 mg capsule 10 mg PO TID #21 cap 02/02/21 [Rx Last Taken Unknown] prednisone 20 mg tablet 40 mg PO QHS #60 tab 03/25/21 [Rx Last Taken Unknown] Allergy/AdvReac Type Severity Reaction Status Date / Time No Known Allergies Allergy Verified 05/04/21 16:03 Surgical History History of mandibular surgery Hx of colonoscopy Hx of myringotomy Social History Smoking Status: Former smoker ROS ROS ED Constitutional Constitutional ED: Denies chills or fever(s) Eyes Eyes: Denies blurry vision or diplopia ENT ENT ED: Denies rhinorrhea or sore throat Cardiovascular Cardiovascular: Denies chest pain or palpitations Respiratory/Chest Respiratory/Chest: Denies cough or dyspnea Gastrointestinal Gastrointestinal: Reports diarrhea; Denies abdominal pain, nausea or vomiting Genitourinary Genitourinary ED: Denies dysuria Musculoskeletal Musculoskeletal: Denies myalgias or neck pain Integumentary Denies rash Neurologic Neurologic: Denies headache(s) or paresthesias Psychiatric Psychiatric: Denies anxiety or depression EXAM Physical Exam Const Vital Signs: 05/04/21 16:01 05/04/21 17:01 05/04/21 18:14 Temperature 97.7 F L Temperature Source Temporal Pulse Rate 104 H 96 Respiratory Rate 16 25 H Respiratory Effort Normal Respiratory Pattern Normal Blood Pressure 99/59 L 86/55 L Blood Pressure Mean 72 65 Pulse Ox 98 93 Oxygen Delivery Method Room Air Room Air Oxygen Flow Rate (L/min) 05/04/21 19:14 05/04/21 19:42 05/04/21 19:48 Temperature 100.1 F H Temperature Source Oral Pulse Rate 92 Respiratory Rate 18 16 15 Respiratory Effort Respiratory Pattern Blood Pressure 87/58 L 81/53 L Blood Pressure Mean 67 62 Pulse Ox 93 75 98 Oxygen Delivery Method Room Air Room Air Nasal Cannula Oxygen Flow Rate (L/min) 3 05/04/21 20:14 05/04/21 20:56 05/04/21 21:14 Temperature 100.1 F H 100.7 F H Temperature Source Oral Oral Pulse Rate 90 90 96 Respiratory Rate 20 H 22 H 22 H Respiratory Effort Respiratory Pattern Blood Pressure 108/65 86/56 L 84/59 L Blood Pressure Mean 79 66 67 Pulse Ox 96 97 92 Oxygen Delivery Method Nasal Cannula Nasal Cannula Nasal Cannula Oxygen Flow Rate (L/min) 3 3 3 05/04/21 21:45 Temperature Temperature Source Pulse Rate Respiratory Rate Respiratory Effort Respiratory Pattern Blood Pressure 91/53 L Blood Pressure Mean 65 Pulse Ox 88 Oxygen Delivery Method Nasal Cannula Oxygen Flow Rate (L/min) 4 Positive well nourished General Appearance ED: NAD; Negative for pallor HEENT Reports dry mucous membranes Negative for trauma Mouth ED: Yes dry mucous membranes Mouth: dry mucous membranes Eyes PERRL and EOMs intact bilaterally General Eye ED: Negative for pale conjunctiva or scleral icterus Neck no lymphadenopathy and supple Resp normal respiratory effort and clear to auscultation bilaterally Cardio regular rate and regular rhythm GI normal to inspection, nondistended, normoactive bowel sounds Neuro oriented x3 and CN's II-XII intact bilaterally Sensorium / Orientation: alert Psych mental status grossly normal Skin General Skin Exam: Negative for jaundice or pallor MDM MDM MDM Narrative Medical decision making narrative: After reviewing the patient's blood work he was pancytopenic with a white blood cell count of 1.1, hemoglobin of 7.9, platelets of 7. Patient arrives slightly tachycardic and slightly hypotensive below his baseline and sepsis work-up is started. Patient's lactic acid is normal, INR normal PT slightly prolonged at 50.7 and PTT slightly prolonged 0.1. Chest x-ray is obtained and on my interpretation shows no acute cardiopulmonary process and radiologist agree. EKG on my interpretation shows a sinus rhythm with occasional PVCs with a ventricular rate of 92 bpm OH interval 196, QRS duration 100, QTc 457. High-sensitivity troponin is 6. CPK is 75. Discussed with Dr. Xiao who felt this was likely a pancytopenia secondary to his new medication. He ordered a cortisol which was normal at 21.1. He also ordered in flammatory markers which include a CRP which is elevated and a ferritin of 39,000. He also has ordered stool studies but the patient has not had a significant of stool to evaluate. Patient's blood pressure is improving with IV fluids although his baseline pressure is not much higher than what he is currently. CT of the abdomen pelvis identifies what looks to be colitis and splenic varices. There is interpretation of mild splenomegaly although his spleen is the size of his liver. This was palpable on reevaluation. The patient does not have any pain. The CT of the abdomen pelvis also did find some underlying pleural effusions and small lung nodules as well. This was discussed with Dr. Xiao at length and he had already spoken with oncology/hematology who did not want to start Neupogen the recommended covering with vancomycin and Zosyn. This was ordered. Patient's magnesium was borderline at 1.7 and 60 was hydrated I did give him magnesium and will order him potassium supplementation. At this point the patient developed a fever of 100.7 and was given Tylenol. After discussing this again with Dr. Xiao he was concerned that he may need IVIG. I spoke with [facility] transfer line who was able to get me the amortization clerk at [facility] who was not sure if the patient needed to go to the ICU based on what he was hearing. I also spoke with [facility] and they were t o get back to me on this. After I made this phone call [facility] did call me back and accepted an ED to ED transfer for the patient. Patient's blood pressure is currently 91/53 which is an improvement. He does not have any specific complaints. He was updated on the transfer and is amenable. Patient will be transferred when transport is available. Impression: 1. Pancytopenia 2. Febrile illness 3. Hypotension 4. Elevated inflammatory markers 5. Splenomegaly 6. Splenic varices 7. Pleural effusions 8. Lung nodules Lab Data Attestation: I reviewed the patient's lab results. Labs: Laboratory Results - last 24 hr 05/04/21 05/04/21 05/04/21 18:20 18:20 18:20 PT INR APTT Lactic Acid Magnesium 1.7 Iron TIBC Iron Saturation Ferritin Total Creatine Kinase Troponin I High Sens 6 Cortisol 21.10 Blood Type B POSITIVE Antibody Screen NEGATIVE 03/05/04/21 05/04/21 18:20 18:20 18:20 PT 15.7 H INR 1.3 APTT 50.1 H Lactic Acid 1.4 Magnesium Iron 29 L TIBC 136 L Iron Saturation 21.3 Ferritin 37266 H Total Creatine Kinase 75 Troponin I High Sens Cortisol Blood Type Antibody Screen Radiography Diagnostic Testing: Clinical Impression(s) from Imaging Studies Chest X-Ray 05/04/21 17:30 IMPRESSION: No radiographic evidence of acute cardiopulmonary disease. Electronically Signed: Ajith Parra MD at 17:47 EDT , Abdomen/Pelvis CT 05/04/21 18:50 Discharge Plan Triage Chief Complaint: Abn Labs ED Provider: Tyler Walker Dx/Rx/DC Orders Prescriptions: No Action metformin 500 mg tablet 500 mg PO DAILY RF: 0 levothyroxine [Synthroid] 75 mcg tablet 75 mcg PO DAILY RF: 0 citalopram 40 mg tablet 20 mg PO DAILY RF: 0 omega-3 fatty acids 1,000 mg capsule 1,000 mg PO DAILY RF: 0 multivitamin Tablet 1 tab PO DAILY RF: 0 calcium carbonate [Calcium 600] 600 mg calcium (1,500 mg) tablet 600 mg PO DAILY RF: 0 mecobalamin (vitamin B12) 1,000 mcg tablet,chewable 1,000 mcg PO BID RF: 0 azathioprine 50 mg tablet 150 mg PO DAILY Qty: 90 RF: 3 diphenoxylate-atropine [Lomotil] 2.5-0.025 mg tablet 1 tab PO DAILY Qty: 30 RF: 1 dicyclomine 10 mg capsule 10 mg PO TID Qty: 21 RF: 0 ginkgo biloba 120 mg Tablet 120 mg PO DAILY RF: 0 azathioprine 50 mg tablet 100 mg PO DAILY 30 Days Qty: 60 RF: 3 prednisone 20 mg tablet 40 mg PO QHS Qty: 60 RF: 0 Primary Care Provider: Cesar Fletcher
[2021-05-04] MEDS: Potassium Chloride Oral Tablet 20 MEQ 40 MEQ PO (23:06)
[2021-05-04] MEDS: Potassium Chloride 10mEq/100mL 10 MEQ/100 ML IV.SOLN. 100 MEQ IV BOLUS (23:09)
--- NOTE | 2021-05-04 23:35 | ED.RN ---
DR. GAMBINO CAME UP TO ASK IF WE COULD GET A RIDE HERE NOW FOR THIS PATIENT DUE TO HIM STARTING TO DECLINE. I CALLED [facility]YS[facility]ANS AND ASKED THEM TO SEND A CREW OVER OR OUTSOURCE IT. THEY CALLED [facility] AND THEY WAS NOT ABLE TO. THEY SAID THE CREW FOR PHYSIC[facility]ANS WAS 40 MINUTES OUT THEY ARE GOING TO START RUNNING LIGHTS AND SIRENS OVER TO THE HOSPITAL AND WILL BE TAKING PATIENT LIGHTS AND SIRENS WELL TO GENERAL ED.
[2021-05-05] MEDS: Potassium Chloride 10mEq/100mL 10 MEQ/100 ML IV.SOLN. 100 MEQ IV BOLUS (00:10)
== END 2021-05-05 00:31 | disposition short-term general hospital (02) ==
LOC: ED 17:10
PROVIDERS: Internal Medicine Gastroenterology; Emergency Provider Student in an Organized Health Care Education/Training Program; PCP Family Medicine; Visit Provider Student in an Organized Health Care Education/Training Program
DX: D61.811 Other drug-induced pancytopenia (principal); K50.90 Crohn's disease, unspecified, without complications; E11.9 Type 2 diabetes mellitus without complications; J90 Pleural effusion, not elsewhere classified; Z20.822 Contact with and (suspected) exposure to COVID-19; I95.9 Hypotension, unspecified; R91.8 Other nonspecific abnormal finding of lung field; E87.1 Hypo-osmolality and hyponatremia; K52.9 Noninfective gastroenteritis and colitis, unspecified; Z79.84 Long term (current) use of oral hypoglycemic drugs; R19.7 Diarrhea, unspecified; I86.8 Varicose veins of other specified sites; E03.9 Hypothyroidism, unspecified; R00.0 Tachycardia, unspecified; R16.1 Splenomegaly, not elsewhere classified; I49.3 Ventricular premature depolarization; Z79.890 Hormone replacement therapy; Z79.899 Other long term (current) drug therapy; F17.220 Nicotine dependence, chewing tobacco, uncomplicated; Z87.891 Personal history of nicotine dependence
CPT/HCPCS: 71045; 74177; 82533; 82550; 82728; 83540; 83550; 83605; 83735; 84484; 85610; 85730; 86850; 86900; 86901; 87040; 87635; 93005; 96361; 96365; 96366; 96367; 99285; J7030; J7040; J7050; P9047; A4216; U0003; U0005

== ENCOUNTER 2021-05-22 16:01 | Outpatient (CLI) | payer OTHER, MEDICAID, SELFPAY ==
[2021-05-22 16:37] LABS: Absolute Lymphocyte Count 0.33 X10^3/uL (0.83-4.51); Absolute Neutrophil Count 1.3 X10^3/uL (2.0-7.7); Hematocrit 31.6 % (40-54); Hemoglobin 10.1 g/dL (13.0-16.5); Lymphocyte # 0.33 X10^3/ul (0.83-4.51); Lymphocyte % 18.2 % (19-41); Mean Corpuscular Hgb 30.8 pg (27.0-32.0); Mean Corpuscular Volume 96.3 fL (80-94); Mean Platelet Vol. 10.4 fl (6.2-12.0); Monocyte# 0.18 X10^3/uL; Monocyte% 9.9 % (0-10); NRBC Flagged by Analyzer 0 % (0-5); Neutrophil # 1.29 X10^3/uL (2.7-7.7); Neutrophil % 71.3 % (47-70); POSITIVE DIFFERENTIAL YES; Platelet Count 133 K/mm3 (150-450); RBC Distribution Width CV 17.6 % (11.6-14.6); RBC Distribution Width SD 62.4 fl (35.1-43.9); Red Blood Count 3.28 M/mm3 (4.6-6.2); White Blood Count 1.8 K/mm3 (4.4-11.0)
[2021-05-22 17:09] LABS: Differential Indicated SCAN CRITERIA MET
[2021-05-22 17:32] LABS: ALB/GLOB Ratio 0.8 RATIO (0.9-2.4); AST(SGOT) 12 U/L (15-37); Alanine Aminotransfer ALT/SGPT 30 U/L (16-61); Albumin, Serum 3.5 g/dL (3.2-5.0); Alkaline Phosphatase 99 U/L (45-117); Anion Gap 5 (5-15); BUN 22 mg/dL (7-18); BUN/Creat Ratio 16.9 RATIO (10-20); Calcium,Total 9.5 mg/dL (8.5-10.1); Chloride 99 mmol/L (98-107); EST Glomerular Filtration Rate 64 mL/min (>60); Est Glom Filt Rate - Afr Amer 77 mL/min (>60); Ferritin 1628 ng/mL (26-388); Globulin 4.2 g/dL (2.2-4.2); Glucose 135 mg/dL (74-106); Potassium 5.5 mmol/L (3.5-5.1); Protein, Total 7.7 g/dL (6.4-8.2); Sodium Level 130 mmol/L (136-145)
[2021-05-22 17:40] LABS: Anisocytosis 1+; Macrocytosis 1+; Ovalocyte RARE; Platelet Estimate SLT DEC (ADEQ); Red Cell Morphology N CHROM NORMAL (NORM C&C); Tear Drop Cell RARE
[2021-05-22 17:46] LABS: Erythrocyte Sedimentation Rate 13 mm/hr (0-20)
[2021-05-25 13:18] LABS: Pathologist Review Reviewed
== END 2021-05-22 23:59 | disposition home or self-care (01) ==
PROVIDERS: PCP Family Medicine; Referring Provider Internal Medicine Gastroenterology; Visit Provider Internal Medicine Gastroenterology
DX: K50.10 Crohn's disease of large intestine without complications (principal); D61.818 Other pancytopenia
CPT/HCPCS: 36415; 80053; 82728; 85025; 85652; 86140; 87040

== ENCOUNTER 2021-06-02 15:04 | Outpatient (CLI) | payer OTHER, MEDICAID, SELFPAY ==
[2021-06-02 15:20] LABS: Absolute Lymphocyte Count 0.56 X10^3/uL (0.83-4.51); Absolute Neutrophil Count 1.8 X10^3/uL (2.0-7.7); Basophil# 0.01 X10^3/uL; Basophil% 0.4 % (0-1); Eosinophil# 0.01 X10^3/uL; Eosinophils% 0.4 % (0-5); Hematocrit 29.9 % (40-54); Lymphocyte # 0.56 X10^3/ul (0.83-4.51); Mean Corp Hgb Conc 33.4 g/dL (32-36); Mean Corpuscular Volume 92.6 fL (80-94); Mean Platelet Vol. 10.4 fl (6.2-12.0); Monocyte# 0.37 X10^3/uL; Monocyte% 13.2 % (0-10); NRBC Flagged by Analyzer 0 % (0-5); Neutrophil # 1.79 X10^3/uL (2.7-7.7); Neutrophil % 63.9 % (47-70); POSITIVE DIFFERENTIAL YES; Platelet Count 152 K/mm3 (150-450); RBC Distribution Width SD 57.4 fl (35.1-43.9); Red Blood Count 3.23 M/mm3 (4.6-6.2); White Blood Count 2.8 K/mm3 (4.4-11.0)
[2021-06-02 15:26] LABS: Differential Indicated SCAN CRITERIA MET
[2021-06-02 15:50] LABS: Differential Comment SCANNED
[2021-06-02 15:51] LABS: ALB/GLOB Ratio 0.9 RATIO (0.9-2.4); AST(SGOT) 13 U/L (15-37); Alanine Aminotransfer ALT/SGPT 22 U/L (16-61); Albumin, Serum 3.6 g/dL (3.2-5.0); Alkaline Phosphatase 78 U/L (45-117); Anion Gap 6 (5-15); BUN 17 mg/dL (7-18); BUN/Creat Ratio 17.1 RATIO (10-20); Calcium,Total 9.2 mg/dL (8.5-10.1); Chloride 102 mmol/L (98-107); EST Glomerular Filtration Rate 87 mL/min (>60); Est Glom Filt Rate - Afr Amer 105 mL/min (>60); Globulin 3.9 g/dL (2.2-4.2); Glucose 112 mg/dL (74-106); Protein, Total 7.5 g/dL (6.4-8.2); Sodium Level 137 mmol/L (136-145)
[2021-06-03 13:50] LABS: Pathologist Review Reviewed
== END 2021-06-02 23:59 | disposition home or self-care (01) ==
LOC: LAB 15:05
PROVIDERS: PCP Family Medicine; Referring Provider Internal Medicine Gastroenterology; Visit Provider Internal Medicine Gastroenterology
DX: E87.5 Hyperkalemia (principal)
CPT/HCPCS: 36415; 80053; 85025

== ENCOUNTER 2021-08-02 20:23 | Inpatient (IN) | payer OTHER, MEDICAID, SELFPAY ==
[2021-08-02 20:24] VITALS: BP 136/92; PULSE 109; RESP 16; TEMP 36.4; O2SAT 98; BMI 23.3
--- NOTE | 2021-08-02 20:36 | EKG12_ITS ---
Test Reason : DYSRHYTHMIA Blood Pressure : / mmHG Vent. Rate : 093 BPM Atrial Rate : 093 BPM P-R Int : 234 ms QRS Dur : 100 ms QT Int : 378 ms P-R-T Axes : 067 -11 012 degrees QTc Int : 469 ms Sinus rhythm with 1st degree A-V block Otherwise normal ECG Confirmed by BARBARA KRUSE, LEANNE ([id number]), commercial production editor CALVIN PARMAR ([id number]) on 08/03/2021 10:18:57 AM Referred By: YASH Confirmed By:LEANNE JIMENEZ MD
[2021-08-02 20:59] LABS: Absolute Neutrophil Count 3.1 X10^3/uL (2.0-7.7); Basophil# 0.05 X10^3/uL; Basophil% 0.8 % (0-1); Eosinophil# 0.09 X10^3/uL; Eosinophils% 1.4 % (0-5); Hematocrit 42.5 % (40-54); Hemoglobin 14.9 g/dL (13.0-16.5); Lymphocyte % 38.5 % (19-41); Mean Corp Hgb Conc 35.1 g/dL (32-36); Mean Corpuscular Hgb 33.6 pg (27.0-32.0); Mean Corpuscular Volume 95.7 fL (80-94); Monocyte# 0.55 X10^3/uL; Monocyte% 8.8 % (0-10); NRBC Flagged by Analyzer 0 % (0-5); Neutrophil # 3.11 X10^3/uL (2.7-7.7); Platelet Count 135 K/mm3 (150-450); RBC Distribution Width CV 15.3 % (11.6-14.6); RBC Distribution Width SD 54.4 fl (35.1-43.9); Red Blood Count 4.44 M/mm3 (4.6-6.2); White Blood Count 6.2 K/mm3 (4.4-11.0)
[2021-08-02 21:14] LABS: AST(SGOT) 47 U/L (15-37); Alanine Aminotransfer ALT/SGPT 37 U/L (16-61); Albumin, Serum 3.9 g/dL (3.2-5.0); Alkaline Phosphatase 80 U/L (45-117); Anion Gap 13 (5-15); BUN 6 mg/dL (7-18); Chloride 95 mmol/L (98-107); Creatinine, Serum 0.86 mg/dL (0.70-1.30); EST Glomerular Filtration Rate 103 mL/min (>60); Est Glom Filt Rate - Afr Amer 125 mL/min (>60); Estimated Creatinine Clearance 120.31 ml/min; Globulin 3.8 g/dL (2.2-4.2); Glucose 123 mg/dL (74-106); Potassium 3.5 mmol/L (3.5-5.1); Protein, Total 7.7 g/dL (6.4-8.2); Sodium Level 135 mmol/L (136-145)
--- NOTE | 2021-08-02 21:41 | EX.ED.DYSGE1 ---
HPI History of Present Illness Chief Complaint: Substance Abuse Informant: patient Onset/Context/Timing Onset: Today Quality: Alcohol withdrawal Current Severity: Severe Associated Symptoms Associated Symptoms: Nausea and vomiting Narrative Narrative: Patient has a history of diabetes, Crohn's disease, and disseminated histoplasmosis. He is currently on itraconazole among his other meds. He is here for alcohol withdrawal. He started drinking about a month ago. He had been sober for years but thought he could start drinking again. He started drinking about 20-25 beers per day. His last drink was shortly prior to arrival. He has a history of DTs and withdrawal seizures in the past. No thoughts of suicide or homicide. Associated nausea and vomiting. [facility] Medical History Alcohol use Chewing tobacco nicotine dependence Crohn's colitis Decreased libido Depression Diabetes Diabetes mellitus History of Crohn's disease History of pain when walking History of steroid therapy Hypothyroid Leukocytosis Seizures Ulcerative colitis Home Medications citalopram 20 mg tablet 20 mg PO DAILY 08/02/21 [History Last Taken Unknown] itraconazole 100 mg capsule 200 mg PO BID 08/02/21 [History Last Taken Unknown] levothyroxine 75 mcg tablet (Euthyrox) 75 mcg PO DAILY 08/02/21 [History Last Taken Unknown] metformin 500 mg tablet 1,000 mg PO BID 08/02/21 [History Last Taken Unknown] prednisone 20 mg tablet 10 mg PO DAILY 08/02/21 [History Last Taken Unknown] Allergy/AdvReac Type Severity Reaction Status Date / Time No Known Allergies Allergy Verified 08/02/21 20:24 Surgical History History of mandibular surgery Hx of colonoscopy Hx of myringotomy Social History Smoking Status: Current every day smoker tobacco type: smokeless tobacco ROS ROS ED Review of Systems ROS Unobtainable: Denies due to encephalopathy Constitutional Constitutional ED: Denies chills or fever(s) Eyes Eyes: Denies blurry vision ENT ENT ED: Denies ear pain Cardiovascular Cardiovascular: Denies chest pain Respiratory/Chest Respiratory/Chest: Denies cough Gastrointestinal Gastrointestinal: Reports nausea and vomiting; Denies abdominal pain, constipation or diarrhea Genitourinary Genitourinary ED: Denies dysuria Musculoskeletal Musculoskeletal: Denies arthralgias Integumentary Denies abscess Neurologic Neurologic: Denies headache(s) Psychiatric Psychiatric: Denies anxiety, depression, suicidal ideation or suicidal thoughts Endocrine Endocrinology: Denies cold intolerance Allergic/Immunologic Allergic/Immunologic ED: Denies mouth swelling EXAM Physical Exam Const Vital Signs: 08/02/21 20:24 Temperature 97.6 F L Temperature Source Temporal Pulse Rate 109 H Respiratory Rate 16 Blood Pressure 136/92 H Blood Pressure Mean 106 Pulse Ox 98 Oxygen Delivery Method Room Air HEENT Reports moist mucous membranes Negative for trauma Eyes EOMs intact bilaterally Resp normal respiratory effort Cardio regular rate and regular rhythm GI normal to inspection, nondistended, normoactive bowel sounds Extremity normal to inspection Neuro oriented x3 and CN's II-XII intact bilaterally Sensorium / Orientation: alert Psych Mood & Affect: depressed Skin no rashes or lesions noted MDM MDM MDM Narrative Medical decision making narrative: EKG shows sinus rhythm with first-degree AV block, heart rate 93, no sign of infarction. This was interpreted by me. CBC was fairly unremarkable, platelets 135. Sodium 135. AST 47. Alcohol level 366. Tox screen is still pending at this time. Patient was treated with Zofran for some vomiting here. Hospitalist was contacted for further care. Impression #1 alcohol withdrawal Impression #2 history of disseminated histoplasmosis Lab Data Attestation: I reviewed the patient's lab results. Labs: Laboratory Results - last 24 hr 08/02/21 08/02/21 08/02/21 20:50 20:50 20:50 WBC 6.2 RBC 4.44 L Hgb 14.9 Hct 42.5 MCV 95.7 H MCH 33.6 H MCHC 35.1 RDW Std Deviation 54.4 H RDW Coeff of Danielle 15.3 H Plt Count 135 L MPV 10.0 Immature Gran % (Auto) 0.500 Neut % (Auto) 50.0 Lymph % (Auto) 38.5 Leake % (Auto) 8.8 Eos % (Auto) 1.4 Baso % (Auto) 0.8 Absolute Neuts (auto) 3.1 Absolute Lymphs (auto) 2.40 Nucleated RBC % 0 Sodium 135 L Potassium 3.5 Chloride 95 L Carbon Dioxide 27.0 Anion Gap 13 BUN 6 L Creatinine 0.86 Estim Creat Clear Calc 120.31 Est GFR (MDRD) Af Amer 125 Est GFR (MDRD) Non-Af 103 BUN/Creatinine Ratio 7.0 L Glucose 123 H Calcium 9.0 Total Bilirubin 0.70 AST 47 H ALT 37 Alkaline Phosphatase 80 Total Protein 7.7 Albumin 3.9 Globulin 3.8 Albumin/Globulin Ratio 1.0 Ur Drug Screen Comment Ethyl Alcohol 366.0 H* 08/02/21 21:22 WBC RBC Hgb Hct MCV MCH MCHC RDW Std Deviation RDW Coeff of Danielle Plt Count MPV Immature Gran % (Auto) Neut % (Auto) Lymph % (Auto) Leake % (Auto) Eos % (Auto) Baso % (Auto) Absolute Neuts (auto) Absolute Lymphs (auto) Nucleated RBC % Sodium Potassium Chloride Carbon Dioxide Anion Gap BUN Creatinine Estim Creat Clear Calc Est GFR (MDRD) Af Amer Est GFR (MDRD) Non-Af BUN/Creatinine Ratio Glucose Calcium Total Bilirubin AST ALT Alkaline Phosphatase Total Protein Albumin Globulin Albumin/Globulin Ratio Ur Drug Screen Comment Ethyl Alcohol Discharge Plan Triage Chief Complaint: Substance Abuse ED Provider: Kash Flores Dx/Rx/DC Orders Prescriptions: No Action metformin 500 mg tablet 1,000 mg PO BID Label Comments: TAKE 2 TABLETS BY MOUTH TWICE DAILY prednisone 20 mg tablet 10 mg PO DAILY Label Comments: TAKE 2 TABLETS BY MOUTH ONCE DAILY AT BEDTIME levothyroxine [Euthyrox] 75 mcg tablet 75 mcg PO DAILY Label Comments: TAKE 1 TABLET BY MOUTH ONCE DAILY citalopram 20 mg tablet 20 mg PO DAILY Label Comments: TAKE 1 TABLET BY MOUTH ONCE DAILY itraconazole 100 mg capsule 200 mg PO BID Label Comments: TAKE 2 CAPSULES BY MOUTH THREE TIMES DAILY FOR 6 DOSES, THEN 2 CAPSULES TWICE DAILY FOR 6 MONTHS Primary Care Provider: Cesar Fletcher Referrals: Cesar Fletcher MD [Primary Care Provider] -
[2021-08-02] MEDS: Ondansetron 4 MG/2 ML Vial IV (21:42)
[2021-08-02 21:50] LABS: Amphetamine Urine VISTA NEGATIVE (<1000 ng/mL); Barbiturate Urine VISTA NEGATIVE (< 200 ng/mL); Benzodiazepine Urine VISTA NEGATIVE (< 200 ng/mL); Cocaine Urine VISTA NEGATIVE (< 300 ng/mL); Ecstacy Urine VISTA NEGATIVE (< 500 ng/mL); Methadone Urine VISTA NEGATIVE (< 300 ng/mL); PCP Urine VISTA NEGATIVE (< 25 ng/mL); THC Urine VISTA NEGATIVE (< 50 ng/mL); Vista UDS pH Range 6
[2021-08-02 21:54] VITALS: BP 139/87; PULSE 119; RESP 17; TEMP 36.4; O2SAT 99
--- NOTE | 2021-08-02 22:04 | PCM.HP.STD ---
HPI - General General Date of Admission: 08/02/21 Date of Service: 08/02/21 Chief Complaint: alcohol withdrawal HPI Narrative THOMAS SAINZ, is a 46 M who presents seeking treatment for acute alcohol withdrawal. Patient drinks roughly 24 beers per day. Patient last drink was this evening. Patient is currently having tremors as well as nausea. Patient does have a remote history of alcohol withdrawal seizures and delirium tremens. Patient recently diagnosed with systemic histoplasmosis and is currently taking itraconazole. [facility] Medical History Alcohol use Chewing tobacco nicotine dependence Crohn's colitis Decreased libido Depression Diabetes Diabetes mellitus History of Crohn's disease History of pain when walking History of steroid therapy Hypothyroid Leukocytosis Seizures Ulcerative colitis Home Medications citalopram 20 mg tablet 20 mg PO DAILY 08/02/21 [History Last Taken Unknown] itraconazole 100 mg capsule 200 mg PO BID 08/02/21 [History Last Taken Unknown] levothyroxine 75 mcg tablet (Euthyrox) 75 mcg PO DAILY 08/02/21 [History Last Taken Unknown] metformin 500 mg tablet 1,000 mg PO BID 08/02/21 [History Last Taken Unknown] prednisone 20 mg tablet 10 mg PO DAILY 08/02/21 [History Last Taken Unknown] Allergy/AdvReac Type Severity Reaction Status Date / Time No Known Allergies Allergy Verified 08/02/21 20:24 Surgical History History of mandibular surgery Hx of colonoscopy Hx of myringotomy Social History (Updated 08/02/21 @ 22:[address] Gui Hudson DO) Smoking Status: Current every day smoker tobacco type: smokeless tobacco alcohol intake: current substance use type: does not use ROS ROS Narrative Feels hot. All review of systems were negative except as mentioned above in the history of present illness and the other review of systems. Vital Signs Vital Signs Vital Signs: 08/02/21 20:24 08/02/21 21:54 Temperature 36.4 C L 36.4 C L Temperature Source Temporal Temporal Pulse Rate 109 H 119 H Respiratory Rate 16 17 Blood Pressure 136/92 H 139/87 H Blood Pressure Mean 106 104 Pulse Ox 98 99 Oxygen Delivery Method Room Air Room Air Weight Weight: 78.018 kg Body Mass Index (BMI) 23.3 Physical Exam Const Constitutional Narrative: Awake. Slightly groggy. Tremulous. HEENT normocephalic and head/scalp atraumatic Eyes PERRL and EOMs intact bilaterally Neck no lymphadenopathy Resp normal respiratory effort, no retractions, no use of accessory muscles and clear to auscultation bilaterally Cardio regular rate, regular rhythm, S1 normal heart sound and S2 normal heart sound GI normal to inspection, nondistended, normoactive bowel sounds, soft to palpation, non-tender and non-distended Extremity normal to inspection Results Lab / Micro Data Result Diagrams: 08/02/21 20:50 08/02/21 20:50 Labs: Laboratory Results - last 24 hr 08/02/21 20:50: WBC 6.2, RBC 4.44 L, Hgb 14.9, Hct 42.5, MCV 95.7 H, MCH 33.6 H, MCHC 35.1, RDW Std Deviation 54.4 H, RDW Coeff of Danielle 15.3 H, Plt Count 135 L, MPV 10.0, Immature Gran % (Auto) 0.500, Neut % (Auto) 50.0, Lymph % (Auto) 38.5, Alfalfa % (Auto) 8.8, Eos % (Auto) 1.4, Baso % (Auto) 0.8, Absolute Neuts (auto) 3.1, Absolute Lymphs (auto) 2.40, Nucleated RBC % 0 08/02/21 20:50: Sodium 135 L, Potassium 3.5, Chloride 95 L, Carbon Dioxide 27.0, Anion Gap 13, BUN 6 L, Creatinine 0.86, Estim Creat Clear Calc 120.31, Est GFR (MDRD) Af Amer 125, Est GFR (MDRD) Non-Af 103, BUN/Creatinine Ratio 7.0 L, Glucose 123 H, Calcium 9.0, Total Bilirubin 0.70, AST 47 H, ALT 37, Alkaline Phosphatase 80, Total Protein 7.7, Albumin 3.9, Globulin 3.8, Albumin/Globulin Ratio 1.0 08/02/21 20:50: Ethyl Alcohol 366.0 H* 08/02/21 21:22: Urine Opiates Screen NEGATIVE, Urine Methadone Screen NEGATIVE, Ur Barbiturates Screen NEGATIVE, Ur Phencyclidine Scrn NEGATIVE, Ur Amphetamines Screen NEGATIVE, MDMA (Ecstasy) Screen NEGATIVE, U Benzodiazepines Scrn NEGATIVE, Urine Cocaine Screen NEGATIVE, U Cannabinoids Screen NEGATIVE, Ur Drug Screen Comment Micro: Microbiology 08/02/21 20:50 Nasal Secretion SARS-CoV-2 Antigen (Rapid) - Final Assessment & Plan Assessment/Plan (1) Acute hyperactive alcohol withdrawal delirium: PLAN: Initiate phenobarbital taper Thiamine folate I am very concerned the patient could de-escalate given his current state at this time. Patient does have a history of delirium tremens and withdrawal seizures. (2) Histoplasmosis: PLAN: Likely related with history of Remicade use. Continue with itraconazole. Follow-up with infectious disease as outpatient (3) Crohn's colitis: PLAN: Stable at this time. Patient on prednisone taper which he states that he has been tapering himself. He states that he has been on the 10 mg of prednisone for about a week. All continue with that dosing for now. PLAN: Plan Diabetes mellitus type 2: Continue with metformin and add sliding scale insulin VTE prophylaxis: Patient is more medically complex and our other RAMP patients. Enoxaparin. Charges/Coding Visit Charges Inpatient E&M: 22270 Init Hosp L2
[2021-08-02 23:08] VITALS: BMI 21.6
[2021-08-02 23:13] VITALS: BP 127/91; PULSE 79; RESP 16; TEMP 36.7; O2SAT 100
[2021-08-02] MEDS: Dicyclomine 10 MG Capsule 20 MG PO (23:39)
[2021-08-02] MEDS: Phenobarbital 32.4 MG Tablet 64.8 MG PO (23:39)
[2021-08-02] MEDS: hydrOXYzine PAM 25 MG Capsule 50 MG PO (23:39)
[2021-08-02] MEDS: traZODone 100 MG Tablet PO (23:39)
[2021-08-02 23:50] LABS: Bedside Glucose 124 mg/dL (74-106)
[2021-08-03] VITALS (7 sets, daily range): BP systolic 101–126; BP diastolic 64–84; PULSE 58–102; RESP 14–20; TEMP 36.4–37.5; O2SAT 93–100
[2021-08-03] MEDS: Phenobarbital 32.4 MG Tablet 64.8 MG PO ×6 (03:01→23:28)
[2021-08-03] MEDS: Levothyroxine 75 MCG Tablet PO (06:29)
[2021-08-03] MEDS: hydrOXYzine PAM 25 MG Capsule 50 MG PO (06:29)
[2021-08-03 06:30] LABS: Bedside Glucose 83 mg/dL (74-106)
[2021-08-03] MEDS: Dicyclomine 10 MG Capsule 20 MG PO (06:37)
[2021-08-03] MEDS: Ondansetron 8 MG Tablet PO (06:37)
[2021-08-03] MEDS: metFORMIN HCl 1,000 MG Tablet 1000 MG PO ×2 (08:33→17:41)
[2021-08-03] MEDS: predniSONE 10 MG Tablet PO (08:33)
[2021-08-03] MEDS: Citalopram 20 MG Tablet PO (08:33)
[2021-08-03] MEDS: Folic Acid 1 MG Tablet PO (08:33)
[2021-08-03] MEDS: Enoxaparin 40 MG/0.4 ML Syringe SC (08:33)
[2021-08-03] MEDS: Thiamine Hydrochloride 100 MG Tablet PO (08:33)
--- NOTE | 2021-08-03 09:25 | PCM.PN.HOSP ---
Subjective Subjective Follow-up on acute alcohol withdrawal: Patient was seen and examined. He complains of feeling tremulous. No other acute events overnight. Last CIWA score is 7 Objective Data Objective Data Vital Signs: Vital Signs Temp Pulse Resp BP Pulse Ox 99.3 F H 91 18 101/64 98 08/03/21 06:17 08/03/21 06:17 08/03/21 06:17 08/03/21 06:17 08/03/21 06:17 Oxygen Delivery Method Room Air Weight: 72.2 kg Body Mass Index (BMI) 21.6 Lab / Micro Data Result Diagrams: 08/02/21 20:50 08/02/21 20:50 Labs: Laboratory Results - last 24 hr 08/02/21 20:50: WBC 6.2, RBC 4.44 L, Hgb 14.9, Hct 42.5, MCV 95.7 H, MCH 33.6 H, MCHC 35.1, RDW Std Deviation 54.4 H, RDW Coeff of Danielle 15.3 H, Plt Count 135 L, MPV 10.0, Immature Gran % (Auto) 0.500, Neut % (Auto) 50.0, Lymph % (Auto) 38.5, [place] % (Auto) 8.8, Eos % (Auto) 1.4, Baso % (Auto) 0.8, Absolute Neuts (auto) 3.1, Absolute Lymphs (auto) 2.40, Nucleated RBC % 0 08/02/21 20:50: Sodium 135 L, Potassium 3.5, Chloride 95 L, Carbon Dioxide 27.0, Anion Gap 13, BUN 6 L, Creatinine 0.86, Estim Creat Clear Calc 120.31, Est GFR (MDRD) Af Amer 125, Est GFR (MDRD) Non-Af 103, BUN/Creatinine Ratio 7.0 L, Glucose 123 H, Calcium 9.0, Total Bilirubin 0.70, AST 47 H, ALT 37, Alkaline Phosphatase 80, Total Protein 7.7, Albumin 3.9, Globulin 3.8, Albumin/Globulin Ratio 1.0 08/02/21 20:50: Ethyl Alcohol 366.0 H* 08/02/21 21:22: Urine Opiates Screen NEGATIVE, Urine Methadone Screen NEGATIVE, Ur Barbiturates Screen NEGATIVE, Ur Phencyclidine Scrn NEGATIVE, Ur Amphetamines Screen NEGATIVE, MDMA (Ecstasy) Screen NEGATIVE, U Benzodiazepines Scrn NEGATIVE, Urine Cocaine Screen NEGATIVE, U Cannabinoids Screen NEGATIVE, Ur Drug Screen Comment 08/02/21 23:38: POC Glucose 124 H 08/03/21 06:22: POC Glucose 83 Micro: Microbiology 08/02/21 20:50 Nasal Secretion SARS-CoV-2 Antigen (Rapid) - Final Physical Exam Narrative Physical exam: General: Alert, oriented x3, Cooperative, no apparent distress HEENT: Atraumatic Oral: Moist Mucosa Neck: Supple Lungs: Clear to auscultation Cardiovascular: HS I+II, regular, no murmurs Abdomen: Bowel Sounds Present, Soft, Non Tender Extremities: No edema Const Constitutional Narrative: Awake. Slightly groggy. Tremulous. Assessment & Plan Assessment/Plan (1) Acute hyperactive alcohol withdrawal delirium: (2) Histoplasmosis: PLAN: Plan 1. Acute alcohol withdrawal, last CIWA score was 7, Continue on phenobarb taper, folic acid, multivitamin, and thiamine 2. Systemic histoplasmosis, continue itraconazole 3. History of Crohn's colitis, stable, continue on chronic prednisone 4. Type II DM, blood sugars are controlled, continue on metformin with insulin sliding scale 5. DVT PPx- Lovenox subcu Charges/Coding Visit Charges Inpatient E&M: 91781 Subs Hosp L2
[2021-08-03] MEDS: Acetaminophen 500 MG Tablet PO (10:08)
[2021-08-03] MEDS: ITRACONAZOLE 100 MG CAPSULE 200 MG PO ×2 (10:18→21:30)
[2021-08-03 11:15] LABS: Bedside Glucose 117 mg/dL (74-106)
[2021-08-03 16:36] LABS: Bedside Glucose 96 mg/dL (74-106)
[2021-08-03] MEDS: traZODone 100 MG Tablet PO (21:30)
[2021-08-03 21:35] LABS: Bedside Glucose 79 mg/dL (74-106)
[2021-08-04] MEDS: Phenobarbital 32.4 MG Tablet 64.8 MG PO ×6 (03:26→23:28)
[2021-08-04 03:28] VITALS: BP 108/73; PULSE 51; RESP 16; TEMP 36.6; O2SAT 97
[2021-08-04] MEDS: Levothyroxine 75 MCG Tablet PO (05:24)
[2021-08-04 06:41] LABS: ALB/GLOB Ratio 0.9 RATIO (0.9-2.4); AST(SGOT) 34 U/L (15-37); Alanine Aminotransfer ALT/SGPT 31 U/L (16-61); Albumin, Serum 3.2 g/dL (3.2-5.0); Alkaline Phosphatase 96 U/L (45-117); Anion Gap 5 (5-15); BUN 13 mg/dL (7-18); BUN/Creat Ratio 12.4 RATIO (10-20); Calcium,Total 9.2 mg/dL (8.5-10.1); Chloride 98 mmol/L (98-107); Creatinine, Serum 1.05 mg/dL (0.70-1.30); EST Glomerular Filtration Rate 81 mL/min (>60); Est Glom Filt Rate - Afr Amer 99 mL/min (>60); Estimated Creatinine Clearance 91.68 ml/min; Globulin 3.6 g/dL (2.2-4.2); Glucose 103 mg/dL (74-106); Magnesium 2.4 mg/dL (1.6-2.6); Potassium 3.3 mmol/L (3.5-5.1); Protein, Total 6.8 g/dL (6.4-8.2); Sodium Level 137 mmol/L (136-145)
[2021-08-04 07:00] LABS: Bedside Glucose 101 mg/dL (74-106)
--- NOTE | 2021-08-04 07:46 | PN.HOSP_ITS ---
Subjective Subjective Follow-up on acute alcohol withdrawal: Patient was seen and examined.? No other acute events overnight.? No new com plaints. Objective Data Objective Data Vital Signs: Vital Signs Temp Pulse Resp BP Pulse Ox 97.8 F 51 L 16 108/73 97 08/04/21 03:28 08/04/21 03:28 08/04/21 03:28 08/04/21 03:28 08/04/21 03:28 Oxygen Delivery Method Room Air Weight: 72.2 kg Body Mass Index (BMI) 21.6 Lab / Micro Data Result Diagrams: 08/02/21 20:50 08/04/21 04:31 Labs: Laboratory Results - last 24 hr 08/03/21 11:08: POC Glucose 117 H 08/03/21 16:22: POC Glucose 96 08/03/21 21:28: POC Glucose 79 08/04/21 04:31: Sodium 137, Potassium 3.3 L, Chloride 98, Carbon Dioxide 34.0 H, Anion Gap 5, BUN 13, Creatinine 1.05, Estim Creat Clear Calc 91.68, Est GFR (MDRD) Af Amer 99, Est GFR (MDRD) Non-Af 81, BUN/Creatinine Ratio 12.4, Glucose 103, Calcium 9.2, Magnesium 2.4, Total Bilirubin 0.90, AST 34, ALT 31, Alkaline Phosphatase 96, Total Protein 6.8, Albumin 3.2, Globulin 3.6, Albumin/Globulin Ratio 0.9 08/04/21 06:55: POC Glucose 101 Micro: Microbiology 08/02/21 20:50 Nasal Secretion SARS-CoV-2 Antigen (Rapid) - Final Physical Exam Narrative Physical exam: General: Alert, oriented x3, Cooperative, no apparent distress HEENT: Atraumatic Oral: Moist Mucosa Neck: Supple Lungs: Clear to auscultation Cardiovascular: HS I+II, regular, no murmurs Abdomen: Bowel Sounds Present, Soft, Non Tender Extremities: No edema Assessment & Plan Assessment/Plan (1) Acute hyperactive alcohol withdrawal delirium: (2) Histoplasmosis: PLAN: Plan 1. Acute alcohol withdrawal, improving, last CIWA score was 2, Continue on phenobarb taper, folic acid, multivitamin, and thiamine 2. Systemic histoplasmosis, continue itraconazole 3. History of Crohn's colitis, stable, continue on chronic prednisone 4. Type II DM, blood sugars are controlled, continue on metformin with insulin sliding scale 5. DVT PPx- Lovenox subcu Charges/Coding Visit Charges Inpatient E&M: 04905 Subs Hosp L2
[2021-08-04 08:43] VITALS: BP 125/90; PULSE 64; RESP 16; TEMP 36.4; O2SAT 100
[2021-08-04] MEDS: Thiamine Hydrochloride 100 MG Tablet PO (08:48)
[2021-08-04] MEDS: Citalopram 20 MG Tablet PO (08:48)
[2021-08-04] MEDS: Enoxaparin 40 MG/0.4 ML Syringe SC (08:48)
[2021-08-04] MEDS: Folic Acid 1 MG Tablet PO (08:48)
[2021-08-04] MEDS: predniSONE 10 MG Tablet PO (08:48)
[2021-08-04] MEDS: metFORMIN HCl 1,000 MG Tablet 1000 MG PO ×2 (08:49→17:12)
[2021-08-04] MEDS: ITRACONAZOLE 100 MG CAPSULE 200 MG PO ×2 (08:49→21:31)
--- NOTE | 2021-08-04 10:25 | ADDICTION ---
This telegraphic typewriter repairer met with PT to conduct ASAM, MSE, AUDIT, DUDIT assessments and to plan for d/c. PT A+Ox4 and participated actively. All assessments completed and placed in PT's chart. PT plans to f/u with [facility] for follow-up treatment services. PT did not indicate a need for transportation post d/c from [facility].
[2021-08-04] MEDS: Insulin Lispro 100 UNIT/ML INSULN.PEN SC (11:57)
[2021-08-04 12:05] LABS: Bedside Glucose 196 mg/dL (74-106)
[2021-08-04 17:40] VITALS: BP 107/74; PULSE 64; RESP 18; TEMP 36.7; O2SAT 100
[2021-08-04 20:00] VITALS: BP 125/84; PULSE 90; RESP 16; TEMP 37.1; O2SAT 99
[2021-08-04 20:16] LABS: Bedside Glucose 106 mg/dL (74-106)
[2021-08-04] MEDS: traZODone 100 MG Tablet PO (21:32)
[2021-08-04 21:40] LABS: Bedside Glucose 117 mg/dL (74-106)
[2021-08-05] MEDS: Phenobarbital 32.4 MG Tablet 64.8 MG PO ×2 (03:33→07:04)
[2021-08-05 03:35] VITALS: BP 105/75; PULSE 52; RESP 16; TEMP 36.6; O2SAT 99
[2021-08-05] MEDS: Levothyroxine 75 MCG Tablet PO (06:33)
[2021-08-05 06:41] LABS: Bedside Glucose 118 mg/dL (74-106)
--- NOTE | 2021-08-05 09:05 | DCINST_ITS ---
Discharge Instructions Diet Discharge Diet: 2000 mg Sodium Diet and Carb Control Diet Activity Discharge Activity: Return to Normal Activity Follow Up Care Test Results: Test results from this visit will be discussed in further detail at your follow- up appointment, if applicable. Discharge Plan Admission Admit Date/Time: 08/02/21 22:01 Primary Reason for Your Visit: Acute alcohol withdrawal Attending Provider: Nessa Phillips Primary Care Provider: Cesar Fletcher Consulting Providers: Gui Hudson Instructions Additional Instructions / Restrictions: You are strongly advised to avoid alcohol or use of any illicit drug. Avoid smoking. Follow-up with your outpatient rehab program as scheduled. Discharge Orders/Prescriptions Prescriptions: Continued metformin 500 mg tablet 1,000 mg PO BID Label Comments: TAKE 2 TABLETS BY MOUTH TWICE DAILY prednisone 20 mg tablet 10 mg PO DAILY Label Comments: TAKE 2 TABLETS BY MOUTH ONCE DAILY AT BEDTIME levothyroxine [Euthyrox] 75 mcg tablet 75 mcg PO DAILY Label Comments: TAKE 1 TABLET BY MOUTH ONCE DAILY citalopram 20 mg tablet 20 mg PO DAILY Label Comments: TAKE 1 TABLET BY MOUTH ONCE DAILY itraconazole 100 mg capsule 200 mg PO BID Label Comments: TAKE 2 CAPSULES BY MOUTH THREE TIMES DAILY FOR 6 DOSES, THEN 2 CAPSULES TWICE DAILY FOR 6 MONTHS Referrals / Follow Up: Cesar Fletcher MD [Primary Care Provider] - Disposition Disposition (needs filled in before D/C Order can be placed): Home, Self Care
--- NOTE | 2021-08-05 09:09 | DS.PCM_ITS ---
Providers Date of Admission: 08/02/21 Date of Discharge: 08/05/21 Primary Care Physician: Dr. Cesar Fletcher MD Reason For Visit: ALCOHOL WITHDRAWAL Diagnosis Discharge Diagnosis (1) Acute hyperactive alcohol withdrawal delirium: Status: Acute Code(s): F10.231 - Alcohol dependence with withdrawal delirium (2) Histoplasmosis: Status: Acute Code(s): B39.9 - Histoplasmosis, unspecified Medications at Discharge Home Medications citalopram 20 mg tablet 20 mg PO DAILY depression 08/02/21 itraconazole 100 mg capsule 200 mg PO BID hystoplasmosis 08/02/21 levothyroxine 75 mcg tablet (Euthyrox) 75 mcg PO DAILY thyroid 08/02/21 metformin 500 mg tablet 1,000 mg PO BID diabetes 08/02/21 prednisone 20 mg tablet 10 mg PO DAILY Crohns 08/02/21 Hospital Course Operations None Procedures None Summary of Care Provided Minutes Spent on Discharge: 35 Hospital Course: 46-year-old male with past medical history of chronic alcohol abuse, complicated by history of alcohol withdrawal seizures and delirium tremens, history of Crohn's colitis, recent diagnosis of systemic histoplasmosis, on antrochoanal, follows with Dr. Conrad in [facility] who comes in requesting medical stabilization from acute alcohol withdrawal. Patient admits to drinking about 24 beers a day. His last drink was some hours before admission. Patient was admitted to the [facility] floor and managed under alcohol withdrawal protocol. Patient continued to do well. His CIWA scores were very low. He was seen by metal storage worker and patient will follow-up with [facility] for follow-up treatment services. On the day of discharge, patient was seen and examined, he denied any new complaints. No acute events overnight. Physical Exam Narrative Physical exam: General: Alert, oriented x3, Cooperative, no apparent distress HEENT: Atraumatic Oral: Moist Mucosa Neck: Supple Lungs: Clear to auscultation Cardiovascular: HS I+II, regular, no murmurs Abdomen: Bowel Sounds Present, Soft, Non Tender Extremities: No edema Weight / BMI Weight Weight: 72.2 kg Body Mass Index (BMI) 21.6 ABG / Lab / Microbiology Data Result Diagrams: 08/02/21 20:50 08/04/21 04:31 Laboratory: Laboratory Results - last 24 hr 08/04/21 11:54: POC Glucose 196 H 08/04/21 17:10: POC Glucose 106 08/04/21 21:31: POC Glucose 117 H 08/05/21 06:33: POC Glucose 118 H Microbiology: Microbiology 08/02/21 20:50 Nasal Secretion SARS-CoV-2 Antigen (Rapid) - Final D/C Instructions Discharge Diet: 2000 mg Sodium Diet and Carb Control Diet Meaningful Use Info Meaningful Use Diagnoses (Choose all that apply): None applicable Discharge Plan Admission Admit Date/Time: 08/02/21 22:01 Primary Reason for Your Visit: Acute alcohol withdrawal Attending Provider: Nessa Phillips Primary Care Provider: Cesar Fletcher Consulting Providers: Gui Hudson Instructions Additional Instructions / Restrictions: You are strongly advised to avoid alcohol or use of any illicit drug. Avoid smoking. Follow-up with your outpatient rehab program as scheduled. Discharge Orders/Prescriptions Prescriptions: Continued metformin 500 mg tablet 1,000 mg PO BID Label Comments: TAKE 2 TABLETS BY MOUTH TWICE DAILY prednisone 20 mg tablet 10 mg PO DAILY Label Comments: TAKE 2 TABLETS BY MOUTH ONCE DAILY AT BEDTIME levothyroxine [Euthyrox] 75 mcg tablet 75 mcg PO DAILY Label Comments: TAKE 1 TABLET BY MOUTH ONCE DAILY citalopram 20 mg tablet 20 mg PO DAILY Label Comments: TAKE 1 TABLET BY MOUTH ONCE DAILY itraconazole 100 mg capsule 200 mg PO BID Label Comments: TAKE 2 CAPSULES BY MOUTH THREE TIMES DAILY FOR 6 DOSES, THEN 2 CAPSULES TWICE DAILY FOR 6 MONTHS Referrals / Follow Up: Cesar Fletcher MD [Primary Care Provider] - Disposition Disposition (needs filled in before D/C Order can be placed): Home, Self Care Charges/Coding Visit Charges Inpatient E&M: 80706 Disch Hosp
[2021-08-05 09:21] VITALS: BP 129/90; PULSE 65; RESP 18; TEMP 36.5; O2SAT 100
[2021-08-05] MEDS: Thiamine Hydrochloride 100 MG Tablet PO (09:28)
[2021-08-05] MEDS: ITRACONAZOLE 100 MG CAPSULE 200 MG PO (09:28)
[2021-08-05] MEDS: Enoxaparin 40 MG/0.4 ML Syringe SC (09:28)
[2021-08-05] MEDS: predniSONE 10 MG Tablet PO (09:28)
[2021-08-05] MEDS: Folic Acid 1 MG Tablet PO (09:28)
[2021-08-05] MEDS: Citalopram 20 MG Tablet PO (09:28)
[2021-08-05] MEDS: metFORMIN HCl 1,000 MG Tablet 1000 MG PO (09:28)
--- NOTE | 2021-08-05 10:11 | PHA.DC.MR ---
Pharmacy Service has performed discharge medication reconciliation for this patient. The patient's discharge medication list was reviewed for discrepancies and discrepancies were resolved. Home Medications citalopram 20 mg tablet 20 mg PO DAILY depression 08/02/21 itraconazole 100 mg capsule 200 mg PO BID hystoplasmosis 08/02/21 levothyroxine 75 mcg tablet (Euthyrox) 75 mcg PO DAILY thyroid 08/02/21 metformin 500 mg tablet 1,000 mg PO BID diabetes 08/02/21 prednisone 20 mg tablet 10 mg PO DAILY Crohns 08/02/21
== END 2021-08-05 10:38 | disposition home or self-care (01) | DRG 897 ==
LOC: ED 21:00 → MS3 22:13
PROVIDERS: Emergency Provider Emergency Medicine; PCP Family Medicine; Visit Provider Internal Medicine
DX: F10.231 Alcohol dependence with withdrawal delirium (principal); K50.90 Crohn's disease, unspecified, without complications; B39.9 Histoplasmosis, unspecified; E11.9 Type 2 diabetes mellitus without complications; I44.0 Atrioventricular block, first degree; F17.220 Nicotine dependence, chewing tobacco, uncomplicated; Z79.84 Long term (current) use of oral hypoglycemic drugs; Z79.899 Other long term (current) drug therapy; Z79.52 Long term (current) use of systemic steroids; Y90.8 Blood alcohol level of 240 mg/100 ml or more
CPT/HCPCS: 36415; 80053; 80307; 82077; 82962; 83735; 85025; 87811; 93005; 99284; 99406; A4216; J2405

== ENCOUNTER → 2023-09-25 22:22 | Outpatient (REF) | payer SELFPAY | END | disposition home or self-care (01) | LOC: EDREF 22:22 | PROVIDERS: PCP Family Medicine | DX: Z00.00 Encounter for general adult medical examination without abnormal findings (principal) ==

== ENCOUNTER 2023-09-25 23:27 | Outpatient (REF) | payer SELFPAY ==
[2023-09-25 23:28] VITALS: BP 132/101; PULSE 107; RESP 16; TEMP 36.8; O2SAT 94; BMI 24.7
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
[2023-09-25] MEDS: Diphth,Pertuss(Acell),Tet Vac 0.5 ML Vial IM (23:57)
[2023-09-26 00:21] VITALS: BP 137/73; PULSE 85; RESP 16; TEMP 36.7; O2SAT 94
== END 2023-09-26 00:23 | disposition home or self-care (01) ==
LOC: EDREF 23:27
PROVIDERS: PCP Family Medicine; Visit Provider Emergency Medicine
DX: S01.312A Laceration without foreign body of left ear, initial encounter (principal); K50.90 Crohn's disease, unspecified, without complications; E11.9 Type 2 diabetes mellitus without complications; Y04.8XXA Assault by other bodily force, initial encounter; W19.XXXA Unspecified fall, initial encounter; F17.220 Nicotine dependence, chewing tobacco, uncomplicated; S09.90XA Unspecified injury of head, initial encounter
CPT/HCPCS: 12011; 90715

== ENCOUNTER 2023-09-29 17:38 | Emergency (ER) | payer MEDICAID, SELFPAY ==
[2023-09-29 17:39] VITALS: BP 136/92; PULSE 92; RESP 18; TEMP 36.1; O2SAT 96; BMI 24.1
--- NOTE | 2023-09-29 17:55 | CT_ITS ---
INDICATION: trrauma/basilar skull fracture right EXAMINATION: CT IAC TEMPORAL BONES - CT IAC/PF/Orbit/Sella W/O Contrast Injection TECHNIQUE: Routine noncontrast CT protocol was performed of the internal auditory canals and temporal bones. 2-D reformats were performed by the technologist. The protocol utilizes one or more of the following dose reduction techniques: automated exposure control, adjustment of mA and/or kV according to patient size,and/or use of iterative reconstruction technique. IV Contrast dosage and agent: None. RADIATION DOSAGE (If Supplied By Facility): CTDIvol = ( 29.38 ) mGy, DLP = ( 562.15 ) mGycm COMPARISON: FINDINGS: RIGHT SIDE: No fracture. SUPERFICIAL SOFT TISSUES: Unremarkable. MASTOID AIR CELLS: Mild right mastoiditis. EXTERNAL AUDITORY CANALS: Clear. MIDDLE EAR CAVITIES: Well aerated. Ossicles and scutum intact. INTERNAL AUDITORY CANALS: Unremarkable bilateral internal auditory canals. No osseous erosion or widening of the canal. INNER EAR: Unremarkable cochlea, vestibule and semicircular canals. LEFT SIDE: No fracture. SUPERFICIAL SOFT TISSUES: Unremarkable. MASTOID AIR CELLS: Well aerated, unremarkable. EXTERNAL AUDITORY CANALS: Clear. MIDDLE EAR CAVITIES: Well aerated. Ossicles and scutum intact. INTERNAL AUDITORY CANALS: Unremarkable bilateral internal auditory canals. No osseous erosion or widening of the canal. INNER EAR: Unremarkable cochlea, vestibule and semicircular canals. VISUALIZED BRAIN AND POSTERIOR FOSSA: Cerebello-pontine angles are unremarkable. There is a plate along the left side of the mandible. CT/Orb Sella Post Fossa Ear w/o IMPRESSION: Right mastoiditis. Electronically Signed: Jb Canada DO at 19:01 EDT Reading Location ID and State: [facility] / [place] Tel [phone], Service support ,
--- NOTE | 2023-09-29 17:55 | CT_ITS ---
EXAM: CT HEAD WITHOUT INTRAVENOUS CONTRAST CLINICAL INDICATION: PAIN TECHNIQUE: Multiple axial images were obtained of the head without intravenous contrast. This CT exam was performed using one or more of the following dose reduction techniques: automated exposure control, adjustment of the mA and/or kV according to patient size, and/or use of iterative reconstruction technique. COMPARISON: No relevant prior studies available. FINDINGS: BRAIN AND EXTRA-AXIAL SPACES: There is borderline enlargement of ventricular system and cortical sulci. There is hypoattenuation in the periventricular white matter. No intra- or extra-axial hemorrhage. No evidence of acute infarct. No intracranial mass or mass effect. There is preservation of the suazo/white matter interface. Posterior fossa structures are unremarkable. Basal cisterns are patent. BONES/JOINTS: Unremarkable. No discrete lytic or blastic abnormalities. SINUSES: Unremarkable as visualized. Clear. MASTOID AIR CELLS: Unremarkable. Clear. ORBITS: Visualized globes, extraocular muscles, optic nerves and retrobulbar fat appear unremarkable. CT/Brain/Head without Contrast IMPRESSION: 1. No acute intracranial abnormality. 2. Borderline senescent change with small vessel ischemia. Electronically Signed: Mikhail Younger MD at 18:43 EDT ,
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
--- NOTE | 2023-09-29 18:13 | ED.RN ---
PT HAS BRUISING BEHIND RIGHT EAR, RIGHT EAR ALSO APPEARS TO BE REDDENED ON THE INSIDE
== END 2023-09-29 19:31 | disposition home or self-care (01) ==
PROVIDERS: Emergency Provider Emergency Medicine; PCP Family Medicine; Visit Provider Emergency Medicine
DX: H91.90 Unspecified hearing loss, unspecified ear (principal); E11.9 Type 2 diabetes mellitus without complications; F17.220 Nicotine dependence, chewing tobacco, uncomplicated
CPT/HCPCS: 70450; 70480; 99282